=== PATIENT | male | born 1990 | race Caucasian/White ===

== ENCOUNTER 2016-08-09 21:42 | Emergency (ER) | payer OTHER ==
[~2016-08-09] VITALS: Ht 182.9 cm; Wt 141.0 kg
[2016-08-09 21:45] VITALS: Ht 182.9 cm; Wt 141.0 kg
[2016-08-09] MEDS ORDERED: SOD CHLORIDE 0.9% 1,000 ML IV STA (22:31)
[2016-08-09] MEDS ORDERED: ONDANSETRON 4 MG INJ IV STA (22:31)
[2016-08-09] MEDS ORDERED: morphine 4 MG/ML VIAL IV STA (22:31)
--- NOTE | 2016-08-09 22:40 | ERD ---
ER Documentation Chief Complaint Date/Time DATE: 08/09/16 TIME: 22:37 Chief Complaint upper abd pain x 3 days HPI 26-year-old male presents here in emergency department for complaints of upper abdominal pain and right lower quadrant pain for 3 days, started to have nausea and vomiting today. Patient does not have any blood in the vomit. Patient does not have any diarrhea or constipation. Patient does not have any blood in the stool or black stool. Patient describes the pain on affected area sharp pain, 6/ 10 scale, accompanied with vomiting. Patient denies any fever or chills. ROS All systems reviewed and are negative except as per history of present illness. Medications Home Meds Reported Medications [none] Unknown Strength No Conflict Check 08/09/16 Allergies Allergies: Coded Allergies: No Known Allergy (Unverified , 08/09/16) PMhx/Soc Medical and Surgical Hx: pt denies Medical Hx, pt denies Surgical Hx Hx Alcohol Use: Yes Hx Substance Use: No Hx Tobacco Use: No Smoking Status: Never smoker FmHx Family History: No coronary disease, No diabetes, No other Physical Exam Vitals Vital Signs Date Time Temp Pulse Resp B/P Pulse Ox O2 Delivery O2 Flow Rate FiO2 08/09/16 21:45 98.7 74 20 134/67 98 Physical Exam GENERAL: The patient is well developed and appropriate for usual state of health, in no apparent distress. CHEST: Clear to auscultation bilaterally. There are no rales, wheezes or rhonchi. HEART: Regular rate and rhythm. No murmurs, clicks, rubs or gallops. No S3 or S4. ABDOMEN: Soft, nontender and nondistended. Good bowel sounds. No rebound or guarding. No gross peritonitis. No gross organomegaly or masses. No Wick sign or McBurney point tenderness. BACK: No midline or flank tenderness. EXTREMITIES: Equal pulses bilaterally. There is no peripheral clubbing, cyanosis or edema. No focal swelling or erythema. Full range of motion. Grossly neurovascularly intact. NEURO: Alert and oriented. Cranial nerves 2-12 intact. Motor strength in all 4 extremities with 5/5 strength. Sensation grossly intact. Normal speech and gait. SKIN: There is no apparent rash or petechia. The skin is warm and dry. HEMATOLOGIC AND LYMPHATIC: There is no evidence of excessive bruising or lymphedema. No gross cervical, axillary, or inguinal lymphadenopathy. Result Diagram: 08/09/16229908/09/162299 Results 24 hrs Laboratory Tests Test 08/09/16 22:45 08/09/16 23:00 Urine Color LT. YELLOW Urine Clarity CLEAR Urine pH 6.0 Urine Specific [place] <=1.005 Urine Ketones NEGATIVE Urine Nitrite NEGATIVE Urine Bilirubin NEGATIVE Urine Urobilinogen 0.2 E.U./dL Urine Leukocyte Esterase NEGATIVE Urine Microscopic RBC 0-2/HPF Urine Microscopic WBC 0-2/HPF Urine Squamous Epithelial Cells RARE Urine Hemoglobin TRACE Urine Glucose NEGATIVE% Urine Total Protein NEGATIVE White Blood Count 10.610^3/ul Red Blood Count 4.9310^6/ul Hemoglobin 14.4g/dl Hematocrit 42.5% Mean Corpuscular Volume 86.2fl Mean Corpuscular Hemoglobin 29.2pg Mean Corpuscular Hemoglobin Concent 33.9g/dl Red Cell Distribution Width 12.3% Platelet Count 52239^3/UL Mean Platelet Volume 10.4fl Neutrophils % 72.6% Lymphocytes % 16.9% Monocytes % 8.8% Eosinophils % 1.1% Basophils % 0.3% Nucleated Red Blood Cells % 0.0/100WBC Neutrophils # 7.710^3/ul Lymphocytes # 1.810^3/ul Monocytes # 0.910^3/ul Eosinophils # 0.110^3/ul Basophils # 0.010^3/ul Nucleated Red Blood Cells # 0.010^3/ul Sodium Level 138mmol/L Potassium Level 4.2mmol/L Chloride Level 103mmol/L Carbon Dioxide Level 27mmol/L Anion Gap 12 Blood Urea Nitrogen 17mg/dl Creatinine 1.48mg/dl Glucose Level 96mg/dl Calcium Level 9.2mg/dl Total Bilirubin 0.2mg/dl Direct Bilirubin 0.00mg/dl Indirect Bilirubin 0.2mg/dl Aspartate Amino Transf (AST/SGOT) 34IU/L Alanine Aminotransferase (ALT/SGPT) 44IU/L Alkaline Phosphatase 77IU/L Total Protein 8.3g/dl Albumin 4.3g/dl Globulin 4.00g/dl Albumin/Globulin Ratio 1.07 Lipase 34U/L Current Medications Medications (Trade) Dose Ordered Sig/Andrés Route PRN Reason Start Time Stop Time Status Last Admin Dose Admin Sodium Chloride (NS) 1,000 ml @ 1,000 mls/hr Q1H STAT IV 08/09/16 22:31 08/09/16 23:30 DC 08/09/16 23:04 Morphine Sulfate (morphine) 4 mg ONCE STAT IV 08/09/16 22:31 08/09/16 22:33 DC 08/09/16 23:04 Ondansetron HCl (Zofran Inj) 4 mg ONCE STAT IV 08/09/16 22:31 08/09/16 22:33 DC 08/09/16 23:04 Patient was given medication for pain here in emergency department, after treatment, patient verbalized feeling much better. Patient's pain is improved.Patient was given Zofran here in the emergency department. After treatment, patient was able to tolerate po fluids here in the emergency department without any vomiting. There is no signs and symptoms of dehydration. Normal saline IV bolus was given here in emergency department for rehydration, patient tolerated IV fluids. PROCEDURE: US right upper quadrant CLINICAL INDICATION: Abdominal pain TECHNIQUE: Multiple real-time images were acquired of the patient's right upper abdomen utilizing a high resolution transducer. COMPARISON: None available FINDINGS: Liver: Increased echogenicity compatible with hepatic steatosis. There is no evidence of mass or ductal dilatation. Contour is normal. Normal size. Normal directional blood flow is seen within the patent main portal vein. The maximum dimension estimated at 13.2 cm . Gallbladder: Normal. No sonographic Wick's sign is reported. Common bile duct: Normal; 4 mm. There is no evidence for choledocholithiasis. Right Kidney: Normal; maximum length measured at approximately 13.2 cm. Pancreas: Obscured by bowel gas. RPTAT:HJJR IMPRESSION: 1. Hepatic steatosis. 2. Bowel gas obscures evaluation of the pancreas. 3. Otherwise unremarkable right upper quadrant ultrasound. Physician Cinthya Date Time Electronically viewed and signed by Physician Cinthya on 08/09/2016 23:23 JR/ CC: PRECIOUS HANLEY NP PROCEDURE: CT Abdomen and pelvis without contrast. CLINICAL INDICATION: Abdominal pain. TECHNIQUE: CT scan of the abdomen and pelvis was performed on a multi- detector high-resolution CT scanner. Contiguous axial images were obtained from the lung bases to the ischial tuberosities without intravenous contrast. Coronal and sagittal reformatted images were also obtained. Images were reviewed on the PACS workstation. One or more of the following dose reduction techniques were used: - Automated exposure control. - Adjustment of the mA and/or kV according to patient size. - Use of iterative reconstruction technique. Exam CTD/vol = 23.76 mGy. Total exam DLP = 1518.99 mGy-cm. COMPARISON: None. FINDINGS: Evaluation of the lung bases demonstrates no pleural or parenchymal disease. Abdomen: The liver is normal in size. There is no focal mass or dilatation of the biliary tree. The gallbladder is not distended. The spleen, pancreas and bilateral adrenal glands are within normal limits. Bilateral kidneys are normal in size with no contour deforming mass identified. There is no radiopaque renal or ureteral calculus identified. There is no hydronephrosis or hydroureter. There is bilateral mild perinephric stranding. There is no retroperitoneal adenopathy. The abdominal aorta is of normal caliber. There is no abnormal bowel wall thickening or distension. There is no bowel obstruction or free air. A normal appendix is identified. There is no diverticulosis or diverticulitis. There is no ascites. Pelvis: The bladder is unremarkable. The prostate and seminal vesicles are within normal limits. There is no significant pelvic adenopathy or free fluid. Evaluation of the osseous structures demonstrates no suspicious lytic or blastic lesion. There are defects of bilateral pars interarticularis of L5. IMPRESSION: Bilateral mild perinephric stranding of uncertain clinical significance. Clinical correlation is needed to exclude pyelonephritis. Bilateral pars defects of L5. Otherwise no acute abnormality identified within the abdomen and pelvis. .Tahir Hogan MD, MD Date Time Electronically viewed and signed by .Tahir Hogan MD, MD on 08/10/2016 01:05 .T/ CC: PRECIOUS HANLEY TAILER OUT Procedures/MDM Medical Decision Making: Patient's upper abdominal pain nonspecific at this time , most likely from gastritis. No gallbladder stones noted. Patient's right lower quadrant abdominal pain nonspecific at this time. There is perinephric stranding noted, but no symptoms of any acute pyelonephritis. No symptoms of any stones. There is low suspicion for abdominal emergencies at this time. Patients abdominal exam is normal at this time. Patients radiology exam does not show any abdominal emergencies at this time. There is low suspicion for appendicitis, cholecystitis, abdominal aortic aneurysms or peritonitis at this time. There is low suspicion for sepsis. Patient appears well and is hemodynamically stable. Disposition: Home. Condition: Stable Prescription [place], Zofran, omeprazole, Mylanta Instructions: Patient is advised to take medications as prescribed. Patient is advised to rest, increase fluid intake and do brat diet for next 1-2 days and progress as tolerated. Patient is advised that if symptoms are worse, severe abdominal pain, uncontrolled vomiting, high fever, severe flank pain, worst signs and symptoms, to return to the emergency department immediately. Otherwise, patient can follow up with primary care doctor in 5-7 days. Departure Diagnosis: Primary Impression: Abdominal pain Abdominal location: generalized Qualified Code: R10.84 - Generalized abdominal pain Condition: Stable Patient Instructions: Abdominal Pain Additional Instructions: Patient is advised to take medications as prescribed. Patient is advised to rest , increase fluid intake and do brat diet for next 1-2 days and progress as tolerated. Patient is advised that if symptoms are worse, severe abdominal pain , uncontrolled vomiting, high fever, severe flank pain, worst signs and symptoms , to return to the emergency department immediately. Otherwise, patient can follow up with primary care doctor in 5-7 days. PRECIOUS HANLEY NP August 09, 2016 22:40
[2016-08-09 23:13] LABS: ADD UMIC YES; URINE BILIRUBIN (Dip) NEGATIVE (NEGATIVE); URINE BLOOD (Dip) TRACE (NEGATIVE); URINE COLOR LT. YELLOW (YELLOW); URINE GLUCOSE (Dip) NEGATIVE (NEGATIVE); URINE KETONES (Dip) NEGATIVE (NEGATIVE); URINE LEUKOCYTE ESTERASE (Dip) NEGATIVE (NEGATIVE); URINE NITRITE (Dip) NEGATIVE (NEGATIVE); URINE TOTAL PROTEIN (Dip) NEGATIVE (NEGATIVE); URINE UROBILINOGEN (Dip) 0.2 E.U./dL (0.1-1.0)
[2016-08-09 23:21] LABS: ADD SCAN DIFF NO
[2016-08-09 23:23] LABS: BASOPHILS % 0.3 % (0.0-2.0); EOSINOPHILS # 0.1 10^3/ul (0.0-0.5); EOSINOPHILS % 1.1 % (0.0-7.0); HEMATOCRIT 42.5 % (42.0-52.0); HEMOGLOBIN 14.4 g/dl (14.0-18.0); LYMPHOCYTES # 1.8 10^3/ul (0.8-2.9); LYMPHOCYTES % 16.9 % (15.0-51.0); MEAN CORPUSCULAR HEMOGLOBIN 29.2 pg (29.0-33.0); MEAN CORPUSCULAR HGB CONC 33.9 g/dl (32.0-37.0); MEAN CORPUSCULAR VOLUME 86.2 fl (82.0-101.0); MEAN PLATELET VOLUME 10.4 fl (7.4-10.4); MONOCYTE # 0.9 10^3/ul (0.3-0.9); MONOCYTES % 8.8 % (0.0-11.0); NEUTROPHIL # 7.7 10^3/ul (1.6-7.5); NEUTROPHILS % 72.6 % (39.0-77.0); PLATELET COUNT 283 10^3/UL (140-415); RED BLOOD COUNT 4.93 10^6/ul (4.70-6.10); RED CELL DISTRIBUTION WIDTH 12.3 % (11.5-14.5); WHITE BLOOD COUNT 10.6 10^3/ul (4.8-10.8)
--- NOTE | 2016-08-09 23:23 | RADRPT ---
PROCEDURE: US right upper quadrant CLINICAL INDICATION: Abdominal pain TECHNIQUE: Multiple real-time images were acquired of the patient's right upper abdomen utilizing a high resolution transducer. COMPARISON: None available FINDINGS: Liver: Increased echogenicity compatible with hepatic steatosis. There is no evidence of mass or d uctal dilatation. Contour is normal. Normal size. Normal directional blood flow is seen within the patent main portal vein. The maximum dimension estimated at 13.2 cm . Gallbladder: Normal. No sonographic Wick's sign is reported. Common bile duct: Normal; 4 mm. There is no evidence for choledocholithiasis. Right Kidney: Normal; maximum length measured at approximately 13.2 cm. Pancreas: Obscured by bowel gas. RPTAT:HJJR IMPRESSION: 1. Hepatic steatosis. 2. Bowel gas obscures evaluation of the pancreas. 3. Otherwise unremarkable right upper quadrant ultrasound. Physician Cinthya Date Time Electronically viewed and signed by Physician Cinthya on 08/09/2016 23:23 /
[2016-08-09 23:37] LABS: SQUAMOUS EPITHELIAL CELL,UR RARE; URINE RBCS 0-2 /HPF (0)
[2016-08-09 23:40] LABS: ALBUMIN 4.3 g/dl (3.3-4.9); ALBUMIN/GLOBULIN RATIO 1.07; BILIRUBIN,INDIRECT 0.2 mg/dl (0-1.1); BILIRUBIN,TOTAL 0.2 mg/dl (0.2-1.3); CALCIUM 9.2 mg/dl (8.4-10.2); CREATININE 1.48 mg/dl (0.61-1.24); POTASSIUM 4.2 mmol/L (3.5-5.1); TOTAL PROTEIN 8.3 g/dl (6.1-8.1)
--- NOTE | 2016-08-10 01:05 | RADRPT ---
PROCEDURE: CT Abdomen and pelvis without contrast. CLINICAL INDICATION: Abdominal pain. TECHNIQUE: CT scan of the abdomen and pelvis was performed on a multi-detector high-resolution CT scanner. Contiguous axial images were obtained from the lung bases to the ischial tuberosities wit hout intravenous contrast. Coronal and sagittal reformatted images were also obtained. Images were reviewed on the PACS workstation. One or more of the following dose reduction techniques were used: - Automated exposure control. - Adjustment of the mA and/or kV according to patient size. - Use of iterative reconstruction technique. Exam CTD/vol = 23.76 mGy. Total exam DLP = 1518.99 mGy-cm. COMPARISON: None. FINDINGS: Evaluation of the lung bases demonstrates no pleural or parenchymal disease. Abdomen: The liver is normal in size. There is no focal mass or dilatation of the biliary tree. T he gallbladder is not distended. The spleen, pancreas and bilateral adrenal glands are within carmen l limits. Bilateral kidneys are normal in size with no contour deforming mass identified. There is no radiopaque renal or ureteral calculus identified. There is no hydronephrosis or hydroureter. T here is bilateral mild perinephric stranding. There is no retroperitoneal adenopathy. The abdomina l aorta is of normal caliber. There is no abnormal bowel wall thickening or distension. There is no bowel obstruction or free air . A normal appendix is identified. There is no diverticulosis or diverticulitis. There is no asci heike. Pelvis: The bladder is unremarkable. The prostate and seminal vesicles are within normal limits. There is no significant pelvic adenopathy or free fluid. Evaluation of the osseous structures demonstrates no suspicious lytic or blastic lesion. There are d efects of bilateral pars interarticularis of L5. IMPRESSION: Bilateral mild perinephric stranding of uncertain clinical significance. Clinical correlation is ne eded to exclude pyelonephritis. Bilateral pars defects of L5. Otherwise no acute abnormality identified within the abdomen and pelvis. .Tahir Hogan MD, MD Date Time Electronically viewed and signed by .Tahir Hogan MD, MD on 08/10/2016 01:05 .T/
[2016-08-10] MEDS ORDERED: ONDA4TAB14 PO (01:10)
[2016-08-10] MEDS ORDERED: MAG-19 PO (01:10)
[2016-08-10] MEDS ORDERED: OMEP20CA16 PO (01:10)
[2016-08-10] MEDS ORDERED: HYDR-906 PO (01:10)
[2016-08-10 01:27] VITALS: BP 133/75; PULSE 57; RESP 16; TEMP 97.7
== END 2016-08-10 01:29 | disposition home or self-care (01) ==
LOC: FTE 21:42
DX: R10.84 Generalized abdominal pain (principal); R11.2 Nausea with vomiting, unspecified
CPT/HCPCS: 36415; 74176; 76705; 80053; 81001; 83690; 85025; 96361; 96374; 96375; 99285; J2270; J2405; J7030

== ENCOUNTER 2018-05-27 07:02 | Inpatient (IN) | payer OTHER ==
[2018-05-24 13:09] VITALS: BMI 93.0
--- NOTE | 2018-05-24 14:20 | RADRPT ---
Vent Rate: 48 bpm RR Interval: 0 msec SC Interval: 180 msec QRS Duration: 92 msec QT Interval: 414 msec QTC Interval: 369 msec P-R-T [place]: 43 - 42 - 41 degrees Marked sinus bradycardia Abnormal ECG Electronically Signed By: Noah Morley
[2018-05-27] VITALS (31 sets, daily range): BP systolic 123–159; BP diastolic 59–114; PULSE 52–100; RESP 11–25; Ht 177.8 cm; Wt 138.1 kg
[~2018-05-27] VITALS: Ht 177.8 cm; Wt 138.1 kg
[~2018-05-27 07:02] MED LIST: ZOF8 PO
[2018-05-27] MEDS ORDERED: OMEP40CA6 PO (07:22)
--- NOTE | 2018-05-27 08:42 | PREAC ---
Date/Time of Note Date/Time of Note DATE: 05/27/18 TIME: 08:42 Anesthesia Eval and Record Evaluation Time Pre-Procedure Interview DATE: 05/27/18 TIME: 08:42 Age 27 Sex male NPO: 8 hrs Preoperative diagnosis gastric CA Planned procedure Partial Gastrectomy Past Medical History Past Medical History: Includes GI: GERD, Morbid obesity Surgery & Anesthesia Issues No known issue Meds Anticoagulation: No Beta Rey within 24 hr: No Reason Beta Rey not given: Pt. not on B-Rey Reported Medications Omeprazole* (Omeprazole*) 40 Mg Capsule.dr, 40 MG PO BID, #30 CAP 05/27/18 Discontinued Scripts Ondansetron Hcl* (Zofran*) 8 Mg Tab, 8 MG PO Q6H PRN for NAUSEA AND OR VOMITING, #20 TAB Prov:CHRISTINE ROBERTS MD 04/28/18 Meds reviewed: Yes Allergies Coded Allergies: No Known Allergy (Unverified , 04/28/18) Allergies Reviewed: Yes Labs/Studies Labs Reviewed: Reviewed by anesthesiologist Result Diagram: 05/24/18 1334 05/24/18 1334 test: N/A Pre-procedure Exam Last vitals Vital Signs Date Temp Pulse Resp B/P (MAP) Pulse Ox O2 O2 Flow FiO2 Time Delivery Rate 05/27/18 97.4 52 16 127/59 98 Room Air 08:13 (81) Airway: Adequate mouth opening, Adequate thyromental dist Mallampati: Mallampati II Teeth: Normal Lung: Normal Heart: Normal ASA Physical Status ASA physical status: 3 Emergency: None Planned Anesthetic General/MAC: ETT Neuraxial: Epidural Nerve block: TAP (bilateral) Pre-operative Attestations Prior to commencing anesthesia and surgery, the patient was re-evaluated, there was verification of: *The patient's identity *The results of appropriate recent lab work and preoperative vital signs *The above evaluation not changing prior to induction *Anesthetic plan, risk benefits, alternative and complications discussed with patient/family; questions answered; patient/family understands, accepts and wishes to proceed. JOS CONRAD May 27, 2018 08:42
[2018-05-27] MEDS ORDERED: ONDANSETRON 4 MG INJ IV PRN (09:00)
[2018-05-27] MEDS ORDERED: DIPHENHYDRAMINE 50 MG INJ IV PRN (09:00)
[2018-05-27] MEDS ORDERED: FENTAnyl 50 MCG/ML VIAL IV PRN ×2 (09:00)
[2018-05-27] MEDS ORDERED: ALBUTEROL 0.083% (NEB) 2.5 MG/3 ML AMP HHN PRN (09:00)
[2018-05-27] MEDS ORDERED: METOCLOPRAMIDE 10 MG INJ IV PRN (09:00)
[2018-05-27] MEDS ORDERED: MEPERIDINE 25 MG INJ IV PRN (09:00)
[2018-05-27] MEDS ORDERED: HYDROmorphONE 1 MG/5 ML IV SYRINGE IV PRN ×2 (09:00)
[2018-05-27] MEDS ORDERED: FENTAnyl 50 MCG/ML VIAL ONE ×4 (09:20→13:17)
[2018-05-27] MEDS ORDERED: CEFAZOLIN 1 GM INJ ONE (09:38)
[2018-05-27] MEDS ORDERED: LIDOCAINE 100 MG SYRINGE ONE (09:38)
[2018-05-27] MEDS ORDERED: ROCURONIUM 50 MG INJ ONE (09:38)
[2018-05-27] MEDS ORDERED: PROPOFOL 40 ML ONE (09:38)
[2018-05-27] MEDS ORDERED: SUCCINYLCHOLINE CHLORIDE 100 MG/5 ML SYG IV ONE (09:38)
[2018-05-27] MEDS ORDERED: SUGAMMADEX SODIUM 200 MG/2 ML VIAL IV ONE (12:39)
[2018-05-27] MEDS: HYDROmorphONE 1 MG/5 ML IV SYRINGE IV PRN ×5 (13:30→13:58)
[2018-05-27] MEDS: FENTAnyl 50 MCG/ML VIAL IV PRN ×5 (13:31→13:59)
[2018-05-27] MEDS: HYDROmorphONE 0.2 MG/ML PCA IV SCH ×2 (14:07→18:31)
[2018-05-27] MEDS ORDERED: DIPHENHYDRAMINE 50 MG INJ ONE (14:16)
--- NOTE | 2018-05-27 14:43 | SIPON ---
Date/Time of Note Date/Time of Note DATE: 05/27/18 TIME: 14:41 Operative Report Preoperative Diagnosis Gastric adenocarcinoma Postoperative Diagnosis Same Operation/Procedure Performed Subtotal gastrectomy with Kiesha-en-Y gastrojejunostomy Surgeon see signature line education administrative assistant Dr Herzog Anesthesia: general Estimated blood loss: 150 - 200 ml's Transfusion Required none Specimen Subtotal gastrectomy specimen Grafts/Implants none Complications none JAVIER ALMONTE MD May 27, 2018 14:43
--- NOTE | 2018-05-27 15:25 | OPR ---
DATE OF OPERATION: 05/27/2018 PREOPERATIVE DIAGNOSIS: Adenocarcinoma of the stomach. POSTOPERATIVE DIAGNOSIS: Adenocarcinoma of the stomach. OPERATION PERFORMED: Exploratory laparotomy and subtotal gastrectomy. ANESTHESIA: General. ANESTHESIOLOGIST: Jose Jason MD SURGEON: Giles Julian MD TERMITE RENEWAL INSPECTOR: Abdiaziz York MD INDICATIONS FOR PROCEDURE: The patient is an unfortunate 27-year-old male who was experiencing sympt oms of gastroesophageal reflux. For this reason, he underwent upper endoscopy and was found to have an ulcerated lesion posterior wall of the body of the stomach approximately 8 cm from the gastroesoph ageal junction. Biopsy confirmed an adenocarcinoma. The patient was counseled as to the need for ga strectomy and possible subtotal gastrectomy. He consented and was scheduled for surgery. DESCRIPTION OF PROCEDURE: The patient was brought to the operating theater, placed under general ane sthesia. A Brennan catheter was placed. The abdomen was then shaved, prepped and draped in the usual sterile fashion. A midline incision was made from a point just to the left of the xiphoid down to th e umbilicus and around the umbilicus to a point 5 cm below the umbilicus. Subcutaneous tissue was di ssected with cautery down to the anterior rectus sheath. The linea alba was incised. The abdomen wa s entered without difficulty. The Bookwalter retractor was then placed. Excellent exposure was obta ined. There was no evidence of intra-abdominal metastases, specifically of the liver. The omentum a nd the mesentery of the bowel were free of disease. There was a palpable mass in the stomach in the expected location. Preparations for gastrectomy were made. The avascular space between the greater omentum and the transverse mesentery was then opened and sequentially opened with the LigaSure device . This allowed for mobilization of the greater curvature of the stomach all the way to the spleen an d then additional mobilization until the area of the proximal duodenum was mobilized. At this point, the lesser sac was entered and the lesser omentum was then also mobilized using the LigaSure device. A suitable point of transection on the proximal duodenum then took place and was carried out with a ZACK stapler. This allowed better visualization of the posterior aspect of the stomach. The distanc e between the tumor and the GE junction was only approximately 6 cm. Therefore, a subtotal gastrecto my was performed with only a remnant of the fundus of the stomach remaining. This was accomplished w ith a ZACK stapler using 2 separate firings. The specimen was then removed and intraoperative analysi s was performed by attending pathologist, Dr. Chan Chang. He stated the margins were grossly cl ear. The wound was then irrigated. Preparations for reanastomosis were made. The duodenal stump wa s then oversewn with multiple 3-0 silk sutures in interrupted fashion. At this point, the ligament o f Treitz was identified and a suitable point for transection to create the Kiesha limb was identified. Approximately 40 cm distal to the ligament of Treitz, the bowel was prepared of its mesentery and th en transected with a ZACK stapler. The distal portion was then brought superior and a jejunojejunosto my was created in the standard fashion using a ZACK stapler and the staple line was then inspected. R esidual bleeding was controlled by oversewing the staple line with 3-0 silk pop off sutures. Final c ompletion of the anastomosis was then accomplished with a TA stapler in the standard fashion and the small opening in the mesentery was then reapproximated with multiple 3-[address] Iesha esparza e the decision to perform the gastrojejunostomy in antecolic fashion. The Kiesha limb was brought in c lose approximation with the residual portion of the gastric fundus and held in place with multiple 3- 0 silk pop-off sutures. A gastrotomy and enterotomy were made and anastomosis was created with a ZACK stapler. Staple line was inspected. Minimal bleeding was controlled with cautery. At this point, the NG tube was advanced through the anastomosis approximately 1 cm into the portion of jejunum. The anastomosis was then completed with a TA stapler in a standard fashion. A #[address] ingram was then brought through the right lower abdominal wall. It was laid adjacent to the duodenal st ump and secured to some fibrous tissue in this area with a 2-0 chromic suture to prevent drain migrat ion. The drain was secured in place with 2-0 nylon suture. Final irrigation and inspection took amie ce. There is no evidence of bleeding. Lap, sponge and instrument counts were correct. The abdomen was then closed with #1 looped PDS sutures in running fashion and the subcutaneous tissue was then ir rigated and the skin was reapproximated with skin alexia. The patient tolerated the procedure well. The total blood loss was approximately 200 mL. There were no complications and the patient was tra nsported in stable condition to the recovery room. Dictated By: GILES JULIAN MD TL/MARTINEZ Conf#: [id number] DID#: [id number] CC: GILES JULIAN MD; ABDIAZIZ YORK MD;*EndCC*
[2018-05-27] MEDS: D5W-0.45 NACL + KCL 20 MEQ 1,000 ML IV SCH ×2 (16:00→21:00)
--- NOTE | 2018-05-27 16:17 | HP ---
Date/Time of Note Date/Time of Note DATE: 05/27/18 TIME: 16:09 Assessment/Plan VTE Prophylaxis SCD applied (from Nsg): Yes Pharmacological prophylaxis: NA/contraindicated Pharm contraindication: surgical contra Lines/Catheters IV Catheter Type (from Nrsg): Peripheral IV Urinary Cath still in place: Yes (Inserted in OR) Reason Cath still needed: urinary retention Assessment/Plan Assessment/Plan -Adenocarcinoma of the stomach, status post exploratory laparotomy and subtotal gastrectomy by Dr. Julian on 05/27/2018. Continue BEE KEEPER Dilaudid as needed for pain and Zofran as needed for nausea. Continue IV fluids and postoperative antibiotics. NG tube to low intermittent suction. -Morbid obesity with BMI of 43.7. Further recommendations based on clinical course. Plan of care discussed with Dr. Carvajal. Result Diagram: 05/24/18 1334 05/24/18 1334 HPI/ROS Admit Date/Time Admit Date/Time May 27, 2018 at 07:02 Hx of Present Illness The patient is an unfortunate 27-year-old male who was evaluated for abdominal pain. Patient was history of H. pylori, completed their medication management. Patient underwent upper endoscopy recurrent abdominal pain and was found to have also rated lesion over posterior wall of the body of the stomach. Biopsy confirmed adenocarcinoma. Patient was evaluated by Dr. Julian in general surgery consultation with recommendation for possible subtotal gastrectomy. Patient was brought to the hospital today and underwent exploratory laparotomy and subtotal gastrectomy. Patient is experiencing significant pain and was started on BEE KEEPER Dilaudid, patient is admitted for further evaluation and management. ROS 12 point review of systems negative except for that mentioned in HPI PMH/Family/Social Past Medical History Medications Current Medications Hydromorphone HCl (Dilaudid BEE KEEPER) 0.2 MG/HR CONTINUOUS R... Q4PCA IV Last administered on 05/27/18at 14:07; Admin Dose 6 MG; Start 05/27/18 at 13:30 Pantoprazole (Protonix Iv) 40 mg DAILY@06 IV ; Start 05/28/18 at 06:00 Potassium Chloride/Dextrose/ Sod Cl 1,000 ml @ 150 mls/hr Q6H40M IV Last administered on 05/27/18at 16:00; Admin Dose 150 MLS/HR; Start 05/27/18 at 14:43 Coded Allergies: No Known Allergy (Unverified , 04/28/18) Past Surgical History Past Surgical Hx: no surgical history Family History Significant Family History: other (Denies any family history of cancer) Social History Alcohol Use: none Smoking Status: Never smoker Drug Use: none Exam/Review of Systems Vital Signs Vitals Vital Signs Date Temp Pulse Resp B/P (MAP) Pulse Ox O2 O2 Flow FiO2 Time Delivery Rate 05/27/18 98.3 56 16 142/77 100 Nasal 2.0 15:22 (98) Cannula Exam Constitutional: alert, oriented Head: normocephalic ENMT: other (NG tube) Neck: supple Respiratory: clear to auscultation Cardiovascular: nl pulses Gastrointestinal: soft, other (Status post surgery) Genitourinary - Male: other (Brennan) Musculoskeletal: nl extremities to inspection Extremities: normal pulses Neurological: nl mental status Skin: nl VEE Lamar May 27, 2018 16:17
[2018-05-27] MEDS: KETOROLAC 30 MG INJ IV SCH ×2 (16:49→22:55)
[2018-05-28] MEDS: D5W-0.45 NACL + KCL 20 MEQ 1,000 ML IV SCH ×4 (02:25→20:47)
[2018-05-28 03:38] VITALS: BP 122/67; PULSE 64; RESP 16
[2018-05-28] MEDS: KETOROLAC 30 MG INJ IV SCH ×4 (05:05→21:00)
[2018-05-28] MEDS: PANTOPRAZOLE 40 MG INJ IV SCH (05:06)
[2018-05-28] MEDS: HYDROmorphONE 0.2 MG/ML PCA IV SCH ×3 (08:08→20:48)
[2018-05-28 08:22] VITALS: BP 140/63; PULSE 68; RESP 18
--- NOTE | 2018-05-28 09:51 | PAC ---
Date/Time of Note Date/Time of Note DATE: 05/28/18 TIME: 09:51 Post-Anesthesia Notes Post-Anesthesia Note Last documented vital signs Vital Signs Date Temp Pulse Resp B/P (MAP) Pulse Ox O2 O2 Flow FiO2 Time Delivery Rate 05/28/18 98.0 68 18 140/63 93 Nasal 08:22 (88) Cannula 05/28/18 2.0 03:38 Activity: WNL Respiratory function: WNL Cardiovascular function: WNL Mental status: Baseline Pain reasonably controlled: Yes Hydration appropriate: Yes Nausea/Vomiting absent: Yes JOS CONRAD May 28, 2018 09:51
--- NOTE | 2018-05-28 12:28 | PN ---
DATE: 05/28/2018 Postop day #1 status post subtotal gastrectomy for cancer of the stomach. SUBJECTIVE: No specific complaints except chest pain. The patient is receiving Toradol 30 mg IV q.6 hours round the clock and also has UNIT MANAGER morphine. OBJECTIVE: GENERAL: Awake, alert and oriented. VITAL SIGNS: Temperature maximum 98.7, heart rate 68, respiration 18, blood pressure 140/63, saturat ion 93% on 2 liters nasal cannula. HEART: Regular. LUNGS: Clear. ABDOMEN: Soft. Dressing is intact. EXTREMITIES: Legs have no calf tenderness. SCDs are in place and working. INPUT AND OUTPUT: The Davis-Schafer drain has drained 125 mL in past 24 hours. NG tube has minimal drainage, maybe 5 to 10 mL. Urine output from the time of operation to 7:00 today morning has been 1 150 mL. LABORATORY DATA: WBC 7300 with 65% segmented, hemoglobin 12.9, hematocrit 38.7. Chemistry: Sodium, potassium, BUN, creatinine are within normal. ASSESSMENT AND PLAN: The patient is stable. Continue current care. Keep the NG tube. Actually, I readjusted the taking of the NG tube. It was emphasized to the nurse RN to document in the computer that nobody should remove the NG tube and if by any chance accidentally the NG tube falls off, nobody should try to put it back. Incentive spirometry exercises are very good. The patient's tidal volum e is about 2500 mL. Dictated By: VIKKI YORK MD PS/NTS Conf#: [id number] DID#: [id number] CC: JAVIER ALMONTE MD; TORRIE MORENO MD;*EndCC*
--- NOTE | 2018-05-28 13:25 | PN ---
Date/Time of Note Date/Time of Note DATE: 05/28/18 TIME: 13:15 Assessment/Plan VTE Prophylaxis Risk score (from Ns)>0 risk: 10 SCD applied (from Ns): Yes Pharmacological prophylaxis: NA/contraindicated Pharm contraindication: surgical contra Lines/Catheters IV Catheter Type (from Nrsg): Peripheral IV Urinary Cath still in place: Yes Reason Cath still needed: urinary retention Assessment/Plan Hospital Course Pain is adequately controlled on STOCKROOM ASSOCIATE Dilaudid, patient is encouraged to use incentive spirometer. Assessment/Plan -Adenocarcinoma of the stomach, status post exploratory laparotomy and subtotal gastrectomy by Dr. Julian on 05/27/2018. Continue STOCKROOM ASSOCIATE Dilaudid as needed for pain and Zofran as needed for nausea. Continue IV fluids and postoperative antibiotics. NG tube to low intermittent suction. -Morbid obesity with BMI of 43.7. Further recommendations based on clinical course. Plan of care discussed with Dr. Carvajal. Result Diagram: 05/28/18 0821 05/28/18 0821 Results 24hrs Laboratory Tests Test 05/28/18 08:21 White Blood Count 7.3 # Red Blood Count 4.48 L Hemoglobin 12.9 L Hematocrit 38.7 L Mean Corpuscular Volume 86.4 Mean Corpuscular Hemoglobin 28.8 L Mean Corpuscular Hemoglobin Concent 33.3 Red Cell Distribution Width 12.4 Platelet Count 233 Mean Platelet Volume 11.3 H Immature Granulocytes % 0.300 Neutrophils % 65.1 Lymphocytes % 23.0 Monocytes % 9.7 Eosinophils % 1.8 Basophils % 0.1 Nucleated Red Blood Cells % 0.0 Immature Granulocytes # 0.020 Neutrophils # 4.7 Lymphocytes # 1.7 Monocytes # 0.7 Eosinophils # 0.1 Basophils # 0.0 Nucleated Red Blood Cells # 0.0 Prothrombin Time 14.1 Prothrombin Time Ratio 1.1 INR International Normalized Ratio 1.08 Activated Partial Thromboplast Time 31.5 Sodium Level 137 Potassium Level 3.9 Chloride Level 102 Carbon Dioxide Level 27 Anion Gap 8 Blood Urea Nitrogen 7 Creatinine 0.70 Est Glomerular Filtrat Rate mL/min > 60 Glucose Level 111 Calcium Level 8.7 Exam/Review of Systems Exam Vitals Vital Signs Date Temp Pulse Resp B/P (MAP) Pulse Ox O2 O2 Flow FiO2 Time Delivery Rate 05/28/18 98.0 68 18 140/63 93 Nasal 08:22 (88) Cannula 3/12/19 2.0 03:38 Intake and Output 05/27/18 05/27/18 05/28/18 1515:00 23:00 07:00 IntakeIntake Total 2000 ml 300 ml 1350 ml OutputOutput Total 250 ml 1125 ml 1000 ml BalanceBalance 1750 ml -825 ml 350 ml Constitutional: alert, oriented Respiratory: clear to auscultation Cardiovascular: nl pulses Gastrointestinal: soft, other (Status post surgery, midline abdominal incision, CAPRICE) Extremities: normal pulses Neurological: nl mental status Results Results 24hrs Laboratory Tests Test 05/28/18 08:21 White Blood Count 7.3 # Red Blood Count 4.48 L Hemoglobin 12.9 L Hematocrit 38.7 L Mean Corpuscular Volume 86.4 Mean Corpuscular Hemoglobin 28.8 L Mean Corpuscular Hemoglobin Concent 33.3 Red Cell Distribution Width 12.4 Platelet Count 233 Mean Platelet Volume 11.3 H Immature Granulocytes % 0.300 Neutrophils % 65.1 Lymphocytes % 23.0 Monocytes % 9.7 Eosinophils % 1.8 Basophils % 0.1 Nucleated Red Blood Cells % 0.0 Immature Granulocytes # 0.020 Neutrophils # 4.7 Lymphocytes # 1.7 Monocytes # 0.7 Eosinophils # 0.1 Basophils # 0.0 Nucleated Red Blood Cells # 0.0 Prothrombin Time 14.1 Prothrombin Time Ratio 1.1 INR International Normalized Ratio 1.08 Activated Partial Thromboplast Time 31.5 Sodium Level 137 Potassium Level 3.9 Chloride Level 102 Carbon Dioxide Level 27 Anion Gap 8 Blood Urea Nitrogen 7 Creatinine 0.70 Est Glomerular Filtrat Rate mL/min > 60 Glucose Level 111 Calcium Level 8.7 Medications Medication Current Medications Hydromorphone HCl (Dilaudid STOCKROOM ASSOCIATE) 0.2 MG/HR CONTINUOUS R... Q4PCA IV Last administered on 05/28/18at 08:08; Admin Dose 6 MG; Start 05/27/18 at 13:30 Pantoprazole (Protonix Iv) 40 mg DAILY@06 IV Last administered on 05/28/18at 05:06; Admin Dose 40 MG; Start 05/28/18 at 06:00 Potassium Chloride/Dextrose/ Sod Cl 1,000 ml @ 150 mls/hr Q6H40M IV Last administered on 05/28/18at 11:36; Admin Dose 150 MLS/HR; Start 05/27/18 at 14:43 Ketorolac Tromethamine (Toradol) 30 mg Q6H IV Last administered on 05/28/18at 09:14; Admin Dose 30 MG; Start 05/27/18 at 16:15; Stop 05/30/18 at 16:14 Ondansetron HCl (Zofran Inj) 4 mg Q4H PRN IV NAUSEA AND/OR VOMITING; Start 05/27/18 at 16:30 VEE COOK May 28, 2018 13:25
[2018-05-28] MEDS: ONDANSETRON 4 MG INJ IV PRN (13:29)
[2018-05-28 15:23] VITALS: BP 138/70; PULSE 67; RESP 18
[2018-05-28 20:42] VITALS: BP 130/60; PULSE 67; RESP 18
[2018-05-29 02:34] VITALS: BP 130/72; PULSE 78; RESP 19
[2018-05-29] MEDS: D5W-0.45 NACL + KCL 20 MEQ 1,000 ML IV SCH ×4 (03:23→23:03)
[2018-05-29] MEDS: KETOROLAC 30 MG INJ IV SCH ×4 (03:25→22:07)
[2018-05-29] MEDS: HYDROmorphONE 0.2 MG/ML PCA IV SCH ×4 (05:34→20:43)
[2018-05-29] MEDS: PANTOPRAZOLE 40 MG INJ IV SCH (05:54)
[2018-05-29 07:36] VITALS: BP 116/56; PULSE 64; RESP 18
[2018-05-29] MEDS: ONDANSETRON 4 MG INJ IV PRN (12:43)
--- NOTE | 2018-05-29 14:05 | PN ---
Date/Time of Note Date/Time of Note DATE: 05/29/18 TIME: 14:00 Assessment/Plan VTE Prophylaxis Risk score (from Ns)>0 risk: 1 SCD applied (from Ns): Yes Pharmacological prophylaxis: NA/contraindicated Pharm contraindication: surgical contra Lines/Catheters IV Catheter Type (from Nrsg): Peripheral IV Urinary Cath still in place: Yes Reason Cath still needed: urinary retention Assessment/Plan Hospital Course Patient has small amount bloody secretions from NG tube, 10 cc per shift, patient continues on LONE LEAD LINEMAN Dilaudid with adequate pain control, continued on IV fluids, afebrile. Assessment/Plan -Adenocarcinoma of the stomach, status post exploratory laparotomy and subtotal gastrectomy by Dr. Julian on 05/27/2018. Continue LONE LEAD LINEMAN Dilaudid as needed for pain and Zofran as needed for nausea. Continue IV fluids and postoperative antibiotics. NG tube to low intermittent suction. -Morbid obesity with BMI of 43.7. Further recommendations based on clinical course. Plan of care discussed with Dr. Carvajal. Result Diagram: 05/29/18 1023 05/29/18 1023 Results 24hrs Laboratory Tests Test 05/29/18 10:23 White Blood Count 7.0 Red Blood Count 4.45 L Hemoglobin 12.9 L Hematocrit 38.7 L Mean Corpuscular Volume 87.0 Mean Corpuscular Hemoglobin 29.0 Mean Corpuscular Hemoglobin Concent 33.3 Red Cell Distribution Width 12.0 Platelet Count 227 Mean Platelet Volume 10.8 H Immature Granulocytes % 0.400 Neutrophils % 71.2 Lymphocytes % 16.8 Monocytes % 8.7 Eosinophils % 2.8 Basophils % 0.1 Nucleated Red Blood Cells % 0.0 Immature Granulocytes # 0.030 Neutrophils # 5.0 Lymphocytes # 1.2 Monocytes # 0.6 Eosinophils # 0.2 Basophils # 0.0 Nucleated Red Blood Cells # 0.0 Prothrombin Time 13.1 Prothrombin Time Ratio 1.0 INR International Normalized Ratio 0.98 Activated Partial Thromboplast Time 31.8 Sodium Level 139 Potassium Level 3.8 Chloride Level 102 Carbon Dioxide Level 29 Anion Gap 8 Blood Urea Nitrogen 5 L Creatinine 0.74 Est Glomerular Filtrat Rate mL/min > 60 Glucose Level 104 Calcium Level 9.0 Exam/Review of Systems Exam Vitals Vital Signs Date Temp Pulse Resp B/P (MAP) Pulse Ox O2 O2 Flow FiO2 Time Delivery Rate 05/29/18 98.7 64 18 116/56 98 07:36 (76) 05/28/18 Nasal 2.0 20:30 Cannula Intake and Output 05/28/18 05/28/18 05/29/18 1414:59 22:59 06:59 IntakeIntake Total 2000 ml 1000 ml 1375 ml OutputOutput Total 1600 ml 1410 ml 2055 ml BalanceBalance 400 ml -410 ml -680 ml Exam Constitutional: alert, oriented Respiratory: clear to auscultation Cardiovascular: nl pulses Gastrointestinal: soft, other (Status post surgery, midline abdominal incision, CAPRICE) Extremities: normal pulses Neurological: nl mental status Results Results 24hrs Laboratory Tests Test 05/29/18 10:23 White Blood Count 7.0 Red Blood Count 4.45 L Hemoglobin 12.9 L Hematocrit 38.7 L Mean Corpuscular Volume 87.0 Mean Corpuscular Hemoglobin 29.0 Mean Corpuscular Hemoglobin Concent 33.3 Red Cell Distribution Width 12.0 Platelet Count 227 Mean Platelet Volume 10.8 H Immature Granulocytes % 0.400 Neutrophils % 71.2 Lymphocytes % 16.8 Monocytes % 8.7 Eosinophils % 2.8 Basophils % 0.1 Nucleated Red Blood Cells % 0.0 Immature Granulocytes # 0.030 Neutrophils # 5.0 Lymphocytes # 1.2 Monocytes # 0.6 Eosinophils # 0.2 Basophils # 0.0 Nucleated Red Blood Cells # 0.0 Prothrombin Time 13.1 Prothrombin Time Ratio 1.0 INR International Normalized Ratio 0.98 Activated Partial Thromboplast Time 31.8 Sodium Level 139 Potassium Level 3.8 Chloride Level 102 Carbon Dioxide Level 29 Anion Gap 8 Blood Urea Nitrogen 5 L Creatinine 0.74 Est Glomerular Filtrat Rate mL/min > 60 Glucose Level 104 Calcium Level 9.0 Medications Medication Current Medications Hydromorphone HCl (Dilaudid LONE LEAD LINEMAN) 0.2 MG/HR CONTINUOUS R... Q4PCA IV Last administered on 05/29/18at 09:52; Admin Dose 6 MG; Start 05/27/18 at 13:30 Pantoprazole (Protonix Iv) 40 mg DAILY@06 IV Last administered on 05/28/18at 05:06; Admin Dose 40 MG; Start 05/28/18 at 06:00 Potassium Chloride/Dextrose/ Sod Cl 1,000 ml @ 150 mls/hr Q6H40M IV Last administered on 05/29/18at 09:50; Admin Dose 150 MLS/HR; Start 05/27/18 at 14:43 Ketorolac Tromethamine (Toradol) 30 mg Q6H IV Last administered on 05/29/18at 09:54; Admin Dose 30 MG; Start 05/27/18 at 16:15; Stop 05/30/18 at 16:14 Ondansetron HCl (Zofran Inj) 4 mg Q4H PRN IV NAUSEA AND/OR VOMITING Last administered on 05/29/18at 12:43; Admin Dose 4 MG; Start 05/27/18 at 16:30 VEE COOK May 29, 2018 14:05
[2018-05-29 15:00] VITALS: BP 134/64; PULSE 74; RESP 18
--- NOTE | 2018-05-29 15:55 | PN ---
DATE: 05/29/2018 Postop day #2 status post laparotomy, subtotal gastrectomy, Kiesha-en-Y gastrojejunostomy and jejunojej unostomy for cancer of the posterior wall of the stomach. SUBJECTIVE: No specific complaint. OBJECTIVE: GENERAL: Fully alert, awake, oriented, in no acute distress. VITAL SIGNS: Temperature 98.7, heart rate 64, respiration 18, blood pressure 116/56, saturation 98% room air. HEART: Regular. LUNGS: Clear. ABDOMEN: Not distended, soft. Bowel sounds are hypoactive. GENITOURINARY: Brennan catheter is in place. SKIN: Davis-Schafer drain through the right abdominal wall is in place draining serosanguineous flui d. EXTREMITIES: Lower extremity: No pitting edema, no calf tenderness. LABORATORY DATA: Today, WBC 7000 with 31% differential which is normal, hemoglobin 12.9, hematocrit 38.7. Chemistry: Sodium, potassium, BUN and creatinine within normal limits. INPUT AND OUTPUT: Urine output was 4900 in past 24 hours, Davis-Schafer drain 155 mL and NG tube whi is on intermittent suction has drained about 120 mL of reddish semi-bloody fluid since yesterday i n the past 24 hours. ASSESSMENT AND PLAN: This is a 27-year-old gentleman with adenocarcinoma of the stomach, lap subtota l gastrectomy on Sunday which was 2 days ago. The patient is currently stable, but up to this time h as not passed any gas or bowel movement so far. There is a Brnenan catheter. There is an NG tube. Th ere is a Davis-Schafer drain. The patient barely got out of bed, sitting in the chair. The patient is using incentive spirometry, also has SHELL MOLDING ROLLER BLAST OPERATOR and also getting Toradol and morphine for control of the pain. PLAN: Get the patient out of bed and walk around either today or if he does not cooperate and cannot do it definitely by tomorrow. We will discontinue the Brennan catheter tomorrow. The patient is stab le. We will continue current care. Dictated By: VIKKI YORK MD PS/NTS Conf#: [id number] DID#: [id number] CC: JAVIER ALMONTE MD; TORRIE MORENO MD;*End*
[2018-05-29 19:30] VITALS: BP 134/63; PULSE 72; RESP 18
[2018-05-29] MEDS: FAMOTIDINE 20 MG INJ IV SCH (20:11)
[2018-05-30 02:15] VITALS: BP 129/60; PULSE 65; RESP 18
[2018-05-30] MEDS: KETOROLAC 30 MG INJ IV SCH ×2 (05:06→10:09)
[2018-05-30] MEDS: HYDROmorphONE 0.2 MG/ML PCA IV SCH ×4 (05:32→23:21)
[2018-05-30] MEDS: D5W-0.45 NACL + KCL 20 MEQ 1,000 ML IV SCH ×4 (07:22→23:11)
[2018-05-30 08:07] VITALS: BP 127/72; PULSE 75; RESP 18
[2018-05-30] MEDS: FAMOTIDINE 20 MG INJ IV SCH ×2 (09:10→21:04)
--- NOTE | 2018-05-30 14:25 | PN ---
Date/Time of Note Date/Time of Note DATE: 05/30/18 TIME: 14:15 Assessment/Plan VTE Prophylaxis Risk score (from Ns)>0 risk: 5 SCD applied (from Ns): Yes Pharmacological prophylaxis: NA/contraindicated Pharm contraindication: surgical contra Lines/Catheters IV Catheter Type (from Nrsg): Peripheral IV Urinary Cath still in place: No Assessment/Plan Hospital Course Patient remains hemodynamically stable, afebrile, pain is adequately controlled on CHEESEMAKING LABORER Dilaudid, NG tube to low intermittent wall suction, small in amount of serosanguineous secretions. Assessment/Plan -Adenocarcinoma of the stomach, status post exploratory laparotomy and subtotal gastrectomy by Dr. Julian on 05/27/2018. Continue CHEESEMAKING LABORER Dilaudid as needed for pain and Zofran as needed for nausea. Continue IV fluids. NG tube to low intermittent suction. -Morbid obesity with BMI of 43.7. Further recommendations based on clinical course. Plan of care discussed with Dr. Carvajal. Result Diagram: 05/30/18 0805 05/30/18 0805 Results 24hrs Laboratory Tests Test 05/30/18 08:05 05/30/18 09:39 White Blood Count 6.6 Red Blood Count 4.54 L Hemoglobin 12.9 L Hematocrit 39.5 L Mean Corpuscular Volume 87.0 Mean Corpuscular Hemoglobin 28.4 L Mean Corpuscular Hemoglobin Concent 32.7 Red Cell Distribution Width 11.9 Platelet Count 245 Mean Platelet Volume 10.8 H Immature Granulocytes % 0.300 Neutrophils % 72.3 Lymphocytes % 16.4 Monocytes % 8.1 Eosinophils % 2.6 Basophils % 0.3 Nucleated Red Blood Cells % 0.0 Immature Granulocytes # 0.020 Neutrophils # 4.8 Lymphocytes # 1.1 Monocytes # 0.5 Eosinophils # 0.2 Basophils # 0.0 Nucleated Red Blood Cells # 0.0 Sodium Level 139 Potassium Level 3.8 Chloride Level 101 Carbon Dioxide Level 26 Anion Gap 12 Blood Urea Nitrogen 7 Creatinine 0.74 Est Glomerular Filtrat Rate mL/min > 60 Glucose Level 102 Calcium Level 9.2 Prothrombin Time 13.1 Prothrombin Time Ratio 1.0 INR International Normalized Ratio 0.98 Activated Partial Thromboplast Time 32.4 Exam/Review of Systems Exam Vitals Vital Signs Date Temp Pulse Resp B/P (MAP) Pulse Ox O2 O2 Flow FiO2 Time Delivery Rate 05/30/18 98.2 75 18 127/72 99 Room Air 08:07 (90) 05/30/18 2.0 08:00 Intake and Output 05/29/18 05/29/18 05/30/18 1515:00 23:00 07:00 IntakeIntake Total 1000 ml 2140 ml 600 ml OutputOutput Total 1700 ml 1555 ml 975 ml BalanceBalance -700 ml 585 ml -375 ml Exam Constitutional: alert, oriented Respiratory: clear to auscultation Cardiovascular: nl pulses Gastrointestinal: soft, other (Status post surgery, midline abdominal incision, CAPRICE) Extremities: normal pulses Neurological: nl mental status Results Results 24hrs Laboratory Tests Test 05/30/18 08:05 05/30/18 09:39 White Blood Count 6.6 Red Blood Count 4.54 L Hemoglobin 12.9 L Hematocrit 39.5 L Mean Corpuscular Volume 87.0 Mean Corpuscular Hemoglobin 28.4 L Mean Corpuscular Hemoglobin Concent 32.7 Red Cell Distribution Width 11.9 Platelet Count 245 Mean Platelet Volume 10.8 H Immature Granulocytes % 0.300 Neutrophils % 72.3 Lymphocytes % 16.4 Monocytes % 8.1 Eosinophils % 2.6 Basophils % 0.3 Nucleated Red Blood Cells % 0.0 Immature Granulocytes # 0.020 Neutrophils # 4.8 Lymphocytes # 1.1 Monocytes # 0.5 Eosinophils # 0.2 Basophils # 0.0 Nucleated Red Blood Cells # 0.0 Sodium Level 139 Potassium Level 3.8 Chloride Level 101 Carbon Dioxide Level 26 Anion Gap 12 Blood Urea Nitrogen 7 Creatinine 0.74 Est Glomerular Filtrat Rate mL/min > 60 Glucose Level 102 Calcium Level 9.2 Prothrombin Time 13.1 Prothrombin Time Ratio 1.0 INR International Normalized Ratio 0.98 Activated Partial Thromboplast Time 32.4 Medications Medication Current Medications Hydromorphone HCl (Dilaudid CHEESEMAKING LABORER) 0.2 MG/HR CONTINUOUS R... Q4PCA IV Last administered on 05/30/18at 11:21; Admin Dose 6 MG; Start 05/27/18 at 13:30 Potassium Chloride/Dextrose/ Sod Cl 1,000 ml @ 120 mls/hr Q8H20M IV Last administered on 05/30/18at 07:22; Admin Dose 120 MLS/HR; Start 05/27/18 at 14:43 Ketorolac Tromethamine (Toradol) 30 mg Q6H IV Last administered on 05/30/18at 10:09; Admin Dose 30 MG; Start 05/27/18 at 16:15; Stop 05/30/18 at 16:14 Ondansetron HCl (Zofran Inj) 4 mg Q4H PRN IV NAUSEA AND/OR VOMITING Last administered on 05/29/18at 12:43; Admin Dose 4 MG; Start 05/27/18 at 16:30 Famotidine (Pepcid Iv) 20 mg Q12 IV Last administered on 05/30/18at 09:10; Admin Dose 20 MG; Start 05/29/18 at 21:00 VEE COOK May 30, 2018 14:25
[2018-05-30] MEDS: CEPASTAT LOZENGE MT PRN ×2 (15:29→17:31)
[2018-05-30] MEDS: ACETAMINOPHEN 1000MG/100ML IV 100 ML IVPB SCH ×2 (15:29→21:04)
[2018-05-30 15:36] VITALS: BP 131/61; PULSE 68; RESP 19
--- NOTE | 2018-05-30 16:33 | PN ---
DATE: 05/30/2018 Postop day #3 status post laparotomy, subtotal gastrectomy for cancer of the stomach. SUBJECTIVE: No specific complaint except that since morning that the Brennan catheter was discontinued , the patient has not been able to urinate. OBJECTIVE: GENERAL: Awake, alert, oriented and sitting in a chair. VITAL SIGNS: Temperature maximum 98.3, heart rate 68, respirations 19, blood pressure 131/61, satura tion 99% on room air. HEART: Regular. LUNGS: Clear. ABDOMEN: Soft. Dressing is intact. LABORATORY DATA: WBC 6600 with 72% segmented, hemoglobin 12.9. Chemistry: Sodium, potassium, BUN, creatinine within normal limits. INPUT AND OUTPUT: I requested nurses to do bladder scan and it was done and it was a lot more than 3 50 mL so straight catheterization was performed and 500 mL of urine was drained. Therefore, we are g oing to do it every 6 hours. NG tube has drained 55 mL in past 24 hours and Davis-Schafer has draine d 75 mL serosanguineous fluid. No flatus, no bowel movement. PLAN: Continue current care. Dictated By: VIKKI YORK MD PS/NTS Conf#: [id number] DID#: [id number] CC: JAVIER ALMONTE MD; TORRIE MORENO MD;*EndCC*
[2018-05-30 20:11] VITALS: BP 135/63; PULSE 57; RESP 20
[2018-05-31] MEDS: ONDANSETRON 4 MG INJ IV PRN ×2 (00:55→10:28)
[2018-05-31] MEDS: CEPASTAT LOZENGE MT PRN (01:04)
[2018-05-31 02:42] VITALS: BP 134/67; PULSE 66; RESP 16
[2018-05-31] MEDS: ACETAMINOPHEN 1000MG/100ML IV 100 ML IVPB SCH ×2 (03:38→09:05)
[2018-05-31] MEDS: HYDROmorphONE 0.2 MG/ML PCA IV SCH ×3 (04:50→17:31)
[2018-05-31] MEDS: D5W-0.45 NACL + KCL 20 MEQ 1,000 ML IV SCH ×3 (06:52→19:07)
[2018-05-31 08:05] VITALS: BP 139/86; PULSE 60; RESP 18
[2018-05-31] MEDS: FAMOTIDINE 20 MG INJ IV SCH ×2 (08:59→20:51)
[2018-05-31 14:00] VITALS: BP 128/75; PULSE 87; RESP 18
--- NOTE | 2018-05-31 15:58 | PN ---
DATE: 05/31/2018 Postop day #4 status post laparotomy, subtotal gastrectomy. SUBJECTIVE: Requesting to be admitted to have some ice chips. Apparently, last night, the patient w as complaining of too much sore throat due to the NG tube and the nurse called Dr. Julian and he agree d to remove the NG tube. OBJECTIVE: GENERAL: Awake, alert, oriented x3, sitting on the bed. VITAL SIGNS: Temperature 98.1, heart rate 67, respirations 16, blood pressure 154/67, saturation 99% on room air. LABORATORY STUDIES: WBC 6100 with 62% segmented, hemoglobin 13.2, hematocrit 39.2. Stable chemistry . Sodium, potassium, BUN and creatinine stable. Pathology for the gastrectomy specimen was marked a nd had shown that there is poorly differentiated adenocarcinoma, diffuse type and 0 lymph node out of 13 lymph node is positive that is only negative. Margins reviewed. PHYSICAL EXAMINATION: HEART: Regular. LUNGS: Clear. ABDOMEN: Soft. Dressing intact. The patient was not able to urinate yesterday, today has been able to urinate. PLAN: We may start sparingly on ice chips just to keep the lips and mouth wet. Encouraged walking a round on the floor. We will continue current care and we will get a Gastrografin barium swallow e on Sunday and then we will start on feeding the patient. Dictated By: VIKKI DE LA TORRE/NTS Conf#: [id number] DID#: [id number]
--- NOTE | 2018-05-31 19:31 | PN ---
Date/Time of Note Date/Time of Note DATE: 05/31/18 TIME: 19:28 Assessment/Plan VTE Prophylaxis Risk score (from Ns)>0 risk: 7 SCD applied (from Ns): Yes Pharmacological prophylaxis: NA/contraindicated Pharm contraindication: surgical contra Lines/Catheters IV Catheter Type (from Nrsg): Peripheral IV Urinary Cath still in place: No Assessment/Plan Hospital Course Pain is adequately controlled with RECEIVING MANAGER Dilaudid, NG tube DC'd patient allowed to start ice chips, Brennan was DC'd yesterday however patient has some urinary retention continue monitor postvoid residual in and out catheter if needed. No flatus. Patient is encouraged to ambulate. Assessment/Plan -Adenocarcinoma of the stomach, status post exploratory laparotomy and subtotal gastrectomy by Dr. Julian on 05/27/2018. Continue RECEIVING MANAGER Dilaudid as needed for pain and Zofran as needed for nausea. Continue IV fluids. NG tube to low intermittent suction. -Morbid obesity with BMI of 43.7. Further recommendations based on clinical course. Plan of care discussed with Dr. Carvajal. Result Diagram: 05/31/18 1001 05/31/18 1001 Results 24hrs Laboratory Tests Test 05/31/18 10:01 White Blood Count 6.1 Red Blood Count 4.58 L Hemoglobin 13.2 L Hematocrit 39.2 L Mean Corpuscular Volume 85.6 Mean Corpuscular Hemoglobin 28.8 L Mean Corpuscular Hemoglobin Concent 33.7 Red Cell Distribution Width 12.0 Platelet Count 292 Mean Platelet Volume 10.6 H Immature Granulocytes % 0.300 Neutrophils % 62.2 Lymphocytes % 23.7 Monocytes % 10.6 Eosinophils % 2.9 Basophils % 0.3 Nucleated Red Blood Cells % 0.0 Immature Granulocytes # 0.020 Neutrophils # 3.8 Lymphocytes # 1.5 Monocytes # 0.7 Eosinophils # 0.2 Basophils # 0.0 Nucleated Red Blood Cells # 0.0 Prothrombin Time 13.3 Prothrombin Time Ratio 1.0 INR International Normalized Ratio 1.00 Activated Partial Thromboplast Time 33.1 Sodium Level 138 Potassium Level 3.8 Chloride Level 101 Carbon Dioxide Level 28 Anion Gap 9 Blood Urea Nitrogen 8 Creatinine 0.66 Est Glomerular Filtrat Rate mL/min > 60 Glucose Level 108 Calcium Level 9.5 Exam/Review of Systems Exam Vitals Vital Signs Date Temp Pulse Resp B/P (MAP) Pulse Ox O2 O2 Flow FiO2 Time Delivery Rate 05/31/18 18 17:31 05/31/18 97.6 87 128/75 97 Room Air 14:00 (92) 05/30/18 2.0 20:00 Intake and Output 05/30/18 05/30/18 05/31/18 1515:00 23:00 07:00 IntakeIntake Total 240 ml 1430 ml 1360 ml OutputOutput Total 40 ml 580 ml 1445 ml BalanceBalance 200 ml 850 ml -85 ml Exam Constitutional: alert, oriented Respiratory: clear to auscultation Cardiovascular: nl pulses Gastrointestinal: soft, other (Status post surgery, midline abdominal incision, CAPRICE) Extremities: normal pulses Neurological: nl mental status Results Results 24hrs Laboratory Tests Test 05/31/18 10:01 White Blood Count 6.1 Red Blood Count 4.58 L Hemoglobin 13.2 L Hematocrit 39.2 L Mean Corpuscular Volume 85.6 Mean Corpuscular Hemoglobin 28.8 L Mean Corpuscular Hemoglobin Concent 33.7 Red Cell Distribution Width 12.0 Platelet Count 292 Mean Platelet Volume 10.6 H Immature Granulocytes % 0.300 Neutrophils % 62.2 Lymphocytes % 23.7 Monocytes % 10.6 Eosinophils % 2.9 Basophils % 0.3 Nucleated Red Blood Cells % 0.0 Immature Granulocytes # 0.020 Neutrophils # 3.8 Lymphocytes # 1.5 Monocytes # 0.7 Eosinophils # 0.2 Basophils # 0.0 Nucleated Red Blood Cells # 0.0 Prothrombin Time 13.3 Prothrombin Time Ratio 1.0 INR International Normalized Ratio 1.00 Activated Partial Thromboplast Time 33.1 Sodium Level 138 Potassium Level 3.8 Chloride Level 101 Carbon Dioxide Level 28 Anion Gap 9 Blood Urea Nitrogen 8 Creatinine 0.66 Est Glomerular Filtrat Rate mL/min > 60 Glucose Level 108 Calcium Level 9.5 Medications Medication Current Medications Hydromorphone HCl (Dilaudid RECEIVING MANAGER) 0.2 MG/HR CONTINUOUS R... Q4PCA IV Last administered on 05/31/18at 17:31; Admin Dose 6 MG; Start 05/27/18 at 13:30 Potassium Chloride/Dextrose/ Sod Cl 1,000 ml @ 120 mls/hr Q8H20M IV Last administered on 05/31/18at 19:07; Admin Dose 120 MLS/HR; Start 05/27/18 at 14:43 Ondansetron HCl (Zofran Inj) 4 mg Q4H PRN IV NAUSEA AND/OR VOMITING Last administered on 05/31/18at 10:28; Admin Dose 4 MG; Start 05/27/18 at 16:30 Famotidine (Pepcid Iv) 20 mg Q12 IV Last administered on 05/31/18at 08:59; Admin Dose 20 MG; Start 05/29/18 at 21:00 Phenol (Cepastat Lozenge) 1 lozenge Q1H PRN MT SORE THROAT Last administered on 05/31/18at 01:04; Admin Dose 1 LOZENGE; Start 05/30/18 at 15:00 VEE COOK May 31, 2018 19:31
[2018-05-31 20:30] VITALS: BP 134/68; PULSE 65; RESP 19
[2018-06-01] MEDS: HYDROmorphONE 0.2 MG/ML PCA IV SCH ×3 (01:19→19:12)
[2018-06-01 02:30] VITALS: BP 135/77; PULSE 95; RESP 18
[2018-06-01] MEDS: D5W-0.45 NACL + KCL 20 MEQ 1,000 ML IV SCH ×4 (04:19→22:06)
[2018-06-01 08:00] VITALS: BP 121/68; PULSE 71; RESP 18
[2018-06-01] MEDS: FAMOTIDINE 20 MG INJ IV SCH ×2 (09:46→20:59)
--- NOTE | 2018-06-01 12:21 | PN ---
DATE: 06/01/2018 Postop day #5 status post laparotomy, subtotal gastrectomy with cancer of the stomach. SUBJECTIVE: No new complaints, feels better. Negative BM, negative flatus. No chills, no fever. OBJECTIVE: GENERAL: Alert, awake, oriented. VITAL SIGNS: Temperature maximum 98.7, heart rate 71, 18 respirations, blood pressure 121/68, satura tion 95% room air. LABORATORY DATA: No lab today. HEART: Regular. LUNGS: Clear. ABDOMEN: Soft. Dressing is intact. EXTREMITIES: Legs no calf tenderness. ASSESSMENT: A 27-year-old patient status post subtotal gastrectomy, postop day #5, is stable, is doi ng fine. The pain is under control. We are going to discontinue the continuous dose of the INGOT CASTER morp claudette and encouraged the patient to ambulate more. Hopefully, by tomorrow, he is going to pass gas an d if that happens or bowel movement, we are going to get the Gastrografin upper GI on Sunday. Dictated By: VIKKI DE LA TORRE/NTS Conf#: [id number] DID#: [id number]
--- NOTE | 2018-06-01 16:34 | PN ---
Date/Time of Note Date/Time of Note DATE: 06/01/18 TIME: 16:34 Assessment/Plan VTE Prophylaxis Risk score (from Nsg)>0 risk: 7 SCD applied (from Nsg): Yes Lines/Catheters IV Catheter Type (from Nrsg): Peripheral IV Urinary Cath still in place: No Assessment/Plan Assessment/Plan -Adenocarcinoma of the stomach, status post exploratory laparotomy and subtotal gastrectomy by Dr. Julian on 05/27/2018. Continue SPOOL WINDER Dilaudid as needed for pain and Zofran as needed for nausea. Continue IV fluids. NG tube to low intermittent suction. -Morbid obesity with BMI of 43.7. Further recommendations based on clinical course. Plan of care discussed with Dr. Carvajal. Result Diagram: 05/31/18 1001 05/31/18 1001 Exam/Review of Systems Exam Vitals Vital Signs Date Temp Pulse Resp B/P (MAP) Pulse Ox O2 O2 Flow FiO2 Time Delivery Rate 06/01/18 17 13:00 06/01/18 98.7 71 121/68 95 08:00 (85) 05/31/18 Room Air 14:00 05/30/18 2.0 20:00 Intake and Output 05/31/18 05/31/18 06/01/18 1515:00 23:00 07:00 IntakeIntake Total 740 ml 1000 ml 1100 ml OutputOutput Total 30 ml 1630 ml 40 ml BalanceBalance 710 ml -630 ml 1060 ml Medications Medication Current Medications Hydromorphone HCl (Dilaudid SPOOL WINDER) MG CONTINUOUS D... Q4PCA IV Last administered on 06/01/18at 11:41; Admin Dose 6 MG; Start 05/27/18 at 13:30 Potassium Chloride/Dextrose/ Sod Cl 1,000 ml @ 120 mls/hr Q8H20M IV Last administered on 06/01/18at 04:19; Admin Dose 120 MLS/HR; Start 05/27/18 at 14:43 Ondansetron HCl (Zofran Inj) 4 mg Q4H PRN IV NAUSEA AND/OR VOMITING Last admin istered on 05/31/18at 10:28; Admin Dose 4 MG; Start 05/27/18 at 16:30 Famotidine (Pepcid Iv) 20 mg Q12 IV Last administered on 3/16/19at 09:46; Admin Dose 20 MG; Start 05/29/18 at 21:00 Phenol (Cepastat Lozenge) 1 lozenge Q1H PRN MT SORE THROAT Last administered on 05/31/18at 01:04; Admin Dose 1 LOZENGE; Start 05/30/18 at 15:00 DAREK SILVA Jun 01, 2018 16:34
[2018-06-01 19:10] VITALS: BP 125/58; PULSE 70; RESP 20
[2018-06-02] MEDS: D5W-0.45 NACL + KCL 20 MEQ 1,000 ML IV SCH ×4 (00:32→21:03)
[2018-06-02 02:00] VITALS: BP 130/62; PULSE 63; RESP 20
[2018-06-02 08:00] VITALS: BP 130/63; PULSE 80; RESP 20
[2018-06-02] MEDS: FAMOTIDINE 20 MG INJ IV SCH ×2 (08:42→20:54)
[2018-06-02] MEDS: HYDROmorphONE 0.2 MG/ML PCA IV SCH (10:28)
[2018-06-02 14:11] VITALS: BP 130/62; PULSE 68; RESP 18
--- NOTE | 2018-06-02 14:27 | PN ---
DATE: 06/02/2018 Postop day #6 status post laparotomy, subtotal gastrectomy for cancer. SUBJECTIVE: Feels better, has passed some gas today. No nausea, no vomiting, no bowel movement. OBJECTIVE: GENERAL: Awake, alert, oriented, sitting in the chair at the bedside. VITAL SIGNS: Temperature maximum 98.7, heart rate 80, respirations 22, blood pressure 130/63, satura tion 97% on room air. HEART: Regular. LUNGS: Clear. ABDOMEN: Soft. Dressing is intact. Wound appears okay. Bowel sound is present. EXTREMITIES: No calf tenderness. No pitting edema. LABORATORY DATA: WBC 5500 with 64% segmented, hemoglobin 12.8, hematocrit 37.7. Chemistry: Sodium, potassium, BUN, creatinine within normal limits. ASSESSMENT AND PLAN: A 27-year-old patient postop day #6 status post subtotal gastrectomy is stable, has started passing gas. We are going to give the Gastrografin swallow tomorrow for assessment of t he anastomosis and from there, we will advance diet if everything is okay. Dictated By: VIKKI YORK MD PS/NTS Conf#: [id number] DID#: [id number] CC: TORRIE MORENO MD; JAVIER ALMONTE MD;*EndCC*
--- NOTE | 2018-06-02 14:29 | PN ---
Date/Time of Note Date/Time of Note DATE: 06/02/18 TIME: 14:09 Assessment/Plan VTE Prophylaxis Risk score (from Nsg)>0 risk: 6 SCD applied (from Nsg): Yes Lines/Catheters IV Catheter Type (from Nrsg): Peripheral IV Urinary Cath still in place: No Assessment/Plan Assessment/Plan -Adenocarcinoma of the stomach, status post exploratory laparotomy and subtotal gastrectomy by Dr. Julian on 05/27/2018. Continue MAINTENANCE CARPENTER Dilaudid as needed for pain and Zofran as needed for nausea. Continue IV fluids. NG tube to low intermittent suction. -Morbid obesity with BMI of 43.7. Further recommendations based on clinical course. Plan of care discussed with Dr. Carvajal. Result Diagram: 06/02/18 0425 05/31/18 1001 Results 24hrs Laboratory Tests Test 06/02/18 04:25 White Blood Count 5.5 Red Blood Count 4.42 L Hemoglobin 12.8 L Hematocrit 37.7 L Mean Corpuscular Volume 85.3 Mean Corpuscular Hemoglobin 29.0 Mean Corpuscular Hemoglobin Concent 34.0 Red Cell Distribution Width 12.0 Platelet Count 288 Mean Platelet Volume 10.5 H Immature Granulocytes % 0.200 Neutrophils % 64.2 Lymphocytes % 21.4 Monocytes % 10.4 Eosinophils % 3.3 Basophils % 0.5 Nucleated Red Blood Cells % 0.0 Immature Granulocytes # 0.010 Neutrophils # 3.5 Lymphocytes # 1.2 Monocytes # 0.6 Eosinophils # 0.2 Basophils # 0.0 Nucleated Red Blood Cells # 0.0 Subjective 24 Hr Interval Summary Free Text/Dictation -MAINTENANCE CARPENTER Dilaudid adjustment made by dr Gonzalez -Patient may be started on clear liquid diet tomorrow per surgery. -Doing well today; was able to pass gas. -abdominal dressing was changed by staff -no new issues reported last night Eyes: no complaints ENT: no complaints Respiratory: no complaints Cardiovascular: no complaints Gastrointestinal: pain (controlled with med) Genitourinary: no complaints Musculoskeletal: no complaints Neurologic: no complaints Endocrine: no complaints Lymphatic: no complaints Psychological: nl mood/affect Immunologic: no complaints Exam/Review of Systems Exam Vitals Vital Signs Date Temp Pulse Resp B/P (MAP) Pulse Ox O2 O2 Flow FiO2 Time Delivery Rate 06/02/18 18 13:13 06/02/18 98.7 80 130/63 97 Room Air 08:00 (85) 05/30/18 2.0 20:00 Intake and Output 06/01/18 06/01/18 06/02/18 1515:00 23:00 07:00 IntakeIntake Total 1900 ml 1000 ml OutputOutput Total 5 ml 15 ml BalanceBalance 1895 ml 985 ml Results Results 24hrs Laboratory Tests Test 06/02/18 04:25 White Blood Count 5.5 Red Blood Count 4.42 L Hemoglobin 12.8 L Hematocrit 37.7 L Mean Corpuscular Volume 85.3 Mean Corpuscular Hemoglobin 29.0 Mean Corpuscular Hemoglobin Concent 34.0 Red Cell Distribution Width 12.0 Platelet Count 288 Mean Platelet Volume 10.5 H Immature Granulocytes % 0.200 Neutrophils % 64.2 Lymphocytes % 21.4 Monocytes % 10.4 Eosinophils % 3.3 Basophils % 0.5 Nucleated Red Blood Cells % 0.0 Immature Granulocytes # 0.010 Neutrophils # 3.5 Lymphocytes # 1.2 Monocytes # 0.6 Eosinophils # 0.2 Basophils # 0.0 Nucleated Red Blood Cells # 0.0 Medications Medication Current Medications Hydromorphone HCl (Dilaudid MAINTENANCE CARPENTER) MG CONTINUOUS D... Q4PCA IV Last administered on 06/02/18 10:28; Admin Dose 6 MG; Start 05/27/18 at 13:30 Potassium Chloride/Dextrose/ Sod Cl 1,000 ml @ 120 mls/hr Q8H20M IV Last administered on 06/02/18at 05:58; Admin Dose 120 MLS/HR; Start 05/27/18 at 14:43 Ondansetron HCl (Zofran Inj) 4 mg Q4H PRN IV NAUSEA AND/OR VOMITING Last administered on 05/31/18 10:28; Admin Dose 4 MG; Start 05/27/18 at 16:30 Famotidine (Pepcid Iv) 20 mg Q12 IV Last administered on 06/02/18 08:42; Admin Dose 20 MG; Start 05/29/18 at 21:00 Phenol (Cepastat Lozenge) 1 lozenge Q1H PRN MT SORE THROAT Last administered on 05/31/18 01:04; Admin Dose 1 LOZENGE; Start 05/30/18 at 15:00 DAREK SILVA Jun 02, 2018 14:27
[2018-06-02 19:30] VITALS: BP 134/78; PULSE 65; RESP 16
[2018-06-02] MEDS: CEPASTAT LOZENGE MT PRN (21:02)
[2018-06-03] MEDS: D5W-0.45 NACL + KCL 20 MEQ 1,000 ML IV SCH ×4 (01:32→20:39)
[2018-06-03 01:55] VITALS: BP 117/62; PULSE 63; RESP 16
[2018-06-03 08:32] VITALS: BP 118/62; PULSE 63
[2018-06-03] MEDS: FAMOTIDINE 20 MG INJ IV SCH ×2 (09:19→20:39)
--- NOTE | 2018-06-03 11:56 | PN ---
Date/Time of Note Date/Time of Note DATE: 06/03/18 TIME: 11:55 Assessment/Plan VTE Prophylaxis Risk score (from Ns)>0 risk: 7 SCD applied (from Ns): Yes Pharmacological prophylaxis: NA/contraindicated Pharm contraindication: surgical contra Lines/Catheters IV Catheter Type (from Nrsg): Peripheral IV Urinary Cath still in place: No Assessment/Plan Hospital Course Pain is adequately controlled patient continues on IV fluids and ice chips, pending Gastrografin follow-through study prior to starting diet, able to void with no problems. Assessment/Plan -Adenocarcinoma of the stomach, status post exploratory laparotomy and subtotal gastrectomy by Dr. Julian on 05/27/2018. Continue CRANE FOLLOWER Dilaudid as needed for pain and Zofran as needed for nausea. Continue IV fluids. -Morbid obesity with BMI of 43.7. Further recommendations based on clinical course. Plan of care discussed with Dr. Carvajal. Result Diagram: 06/02/18 0425 06/02/18 1519 Results 24hrs Laboratory Tests Test 06/02/18 15:19 Sodium Level 137 Potassium Level 4.6 Chloride Level 102 Carbon Dioxide Level 24 Anion Gap 11 Blood Urea Nitrogen 7 Creatinine 0.66 Est Glomerular Filtrat Rate mL/min > 60 Glucose Level 94 Calcium Level 9.6 Exam/Review of Systems Exam Vitals Vital Signs Date Temp Pulse Resp B/P (MAP) Pulse Ox O2 O2 Flow FiO2 Time Delivery Rate 06/03/18 18 09:00 06/03/18 98.3 63 118/62 97 Room Air 08:32 (80) 05/30/18 2.0 20:00 Intake and Output 06/02/18 06/02/18 06/03/18 1515:00 23:00 07:00 IntakeIntake Total 1000 ml 400 ml 960 ml OutputOutput Total 15 ml 10 ml BalanceBalance 1000 ml 385 ml 950 ml Exam Constitutional: alert, oriented Respiratory: clear to auscultation Cardiovascular: nl pulses Gastrointestinal: soft, other (Status post surgery, midline abdominal incision) Extremities: normal pulses Neurological: nl mental status Results Results 24hrs Laboratory Tests Test 06/02/18 15:19 Sodium Level 137 Potassium Level 4.6 Chloride Level 102 Carbon Dioxide Level 24 Anion Gap 11 Blood Urea Nitrogen 7 Creatinine 0.66 Est Glomerular Filtrat Rate mL/min > 60 Glucose Level 94 Calcium Level 9.6 Medications Medication Current Medications Hydromorphone HCl (Dilaudid CRANE FOLLOWER) MG CONTINUOUS D... Q4PCA IV Last administered on 06/02/18 10:28; Admin Dose 6 MG; Start 05/27/18 at 13:30 Potassium Chloride/Dextrose/ Sod Cl 1,000 ml @ 120 mls/hr Q8H20M IV Last administered on 06/03/18 06:34; Admin Dose 120 MLS/HR; Start 05/27/18 at 14:43 Ondansetron HCl (Zofran Inj) 4 mg Q4H PRN IV NAUSEA AND/OR VOMITING Last administered on 05/31/18 10:28; Admin Dose 4 MG; Start 05/27/18 at 16:30 Famotidine (Pepcid Iv) 20 mg Q12 IV Last administered on 06/03/18 09:19; Admin Dose 20 MG; Start 05/29/18 at 21:00 Phenol (Cepastat Lozenge) 1 lozenge Q1H PRN MT SORE THROAT Last administered on 06/02/18 21:02; Admin Dose 1 LOZENGE; Start 05/30/18 at 15:00 VEE COOK Jun 03, 2018 11:56
[2018-06-03] MEDS ORDERED: DIATR MEGLU/DIATRIZOATE SODIUM 120 ML BTL ONE (11:57)
--- NOTE | 2018-06-03 17:42 | PN ---
DATE: 06/03/2018 Postop day #7 status post laparoscopic subtotal gastrectomy for cancer of the stomach. SUBJECTIVE: No complaint. Apparently had a Gastrografin swallow test done today, and following that , patient has had diarrhea. No nausea, no vomiting. No chills, no fever. OBJECTIVE: GENERAL: Awake, alert. VITAL SIGNS: Temperature 98.3, heart rate 63, respirations 18, blood pressure 118/62, saturation 97% room air. HEART: Regular. LUNGS: Clear. ABDOMEN: Soft. Wound clean. LABORATORY DATA: No lab has been done today. IMAGING: Today, patient had contrast study of the esophagus and anastomosis area with Gastrografin. I checked it right now with the radiologist on-call. He stated that he does not see any evidence of leakage. No obstruction. PLAN: Therefore, we are going to start the patient on clear liquids and recheck the patient tomorrow . If everything is okay, we will advance diet as of tomorrow. Dictated By: VIKKI DE LA TORRE/MARTINEZ Conf#: [id number] DID#: [id number]
[2018-06-03 19:30] VITALS: BP 106/57; PULSE 67; RESP 16
[2018-06-03] MEDS: HYDROmorphONE 0.5 MG/0.5 ML SYG IV PRN (20:39)
[2018-06-04] MEDS: D5W-0.45 NACL + KCL 20 MEQ 1,000 ML IV SCH ×2 (00:51→16:38)
[2018-06-04 01:43] VITALS: BP 117/59; PULSE 53; RESP 16
[2018-06-04] MEDS: HYDROmorphONE 0.5 MG/0.5 ML SYG IV PRN ×4 (02:31→20:29)
[2018-06-04 08:12] VITALS: BP 108/56; RESP 18
[2018-06-04 08:16] VITALS: PULSE 55
[2018-06-04] MEDS: FAMOTIDINE 20 MG INJ IV SCH ×2 (08:40→20:29)
--- NOTE | 2018-06-04 14:52 | PN ---
DATE: 06/04/2018 Postop day #8 status post laparotomy, subtotal gastrectomy. SUBJECTIVE: No new complaint. The patient has been having several bowel movements liquidish since w e did Gastrografin swallow yesterday. The report is not yet back in the computer, but I have checked the x-rays with one of the radiologists and he stated that there is no evidence of leak. The patien t has started clear liquids so we are going to advance to full liquid. If he tolerates tomorrow, we will advance to soft diet. PHYSICAL EXAMINATION: GENERAL: Alert, awake, oriented. VITAL SIGNS: Temperature 98.7 maximum, 53 heart rate, respirations 16, blood pressure 117/59, satura tion 96% on room air. Dictated By: VIKKI YORK MD PS/NTS Conf#: [id number] DID#: [id number] CC: TORRIE MORENO MD; JAVIER ALMONTE MD;*EndCC*
[2018-06-04 15:03] VITALS: BP 111/55; PULSE 60
--- NOTE | 2018-06-04 16:51 | PN ---
Date/Time of Note Date/Time of Note DATE: 06/04/18 TIME: 16:47 Assessment/Plan VTE Prophylaxis Risk score (from Ns)>0 risk: 5 SCD applied (from [facility] [place]): Yes Pharmacological prophylaxis: NA/contraindicated Pharm contraindication: surgical contra Lines/Catheters IV Catheter Type (from [facility]): Peripheral IV Urinary Cath still in place: No Assessment/Plan Hospital Course Patient is started on clear liquid diet, pain is adequately controlled, patient's p.o. intake is about 500 cc per shift, continue IV fluids. Assessment/Plan -Adenocarcinoma of the stomach, status post exploratory laparotomy and subtotal gastrectomy by Dr. Julian on 05/27/2018. Advance diet per surgery, IV fluids, pain management. -Morbid obesity with BMI of 43.7. Further recommendations based on clinical course. Plan of care discussed with Dr. Carvajal. Result Diagram: 06/02/18 0425 06/02/18 1519 Exam/Review of Systems Exam Vitals Vital Signs Date Temp Pulse Resp B/P (MAP) Pulse Ox O2 O2 Flow FiO2 Time Delivery Rate 06/04/18 99.5 60 111/55 91 Nasal 15:03 (73) Cannula 06/04/18 18 08:12 Intake and Output 06/03/18 06/03/18 06/04/18 1515:00 23:00 07:00 IntakeIntake Total 1960 ml 1480 ml OutputOutput Total 5 ml 10 ml BalanceBalance 1955 ml 1470 ml Exam Constitutional: alert, oriented Respiratory: clear to auscultation Cardiovascular: nl pulses Gastrointestinal: soft, other (midline abdominal incision) Extremities: normal pulses Neurological: nl mental status Medications Medication Current Medications Potassium Chloride/Dextrose/ Sod Cl 1,000 ml @ 80 mls/hr [id number] IV Last administered on 06/04/18at 16:38; Admin Dose 80 MLS/HR; Start 05/27/18 at 14:43 Ondansetron HCl (Zofran Inj) 4 mg Q4H PRN IV NAUSEA AND/OR VOMITING Last administered on 05/31/18at 10:28; Admin Dose 4 MG; Start 05/27/18 at 16:30 Phenol (Cepastat Lozenge) 1 lozenge Q1H PRN MT SORE THROAT Last administered on 06/02/18at 21:02; Admin Dose 1 LOZENGE; Start 05/30/18 at 15:00 Hydromorphone HCl (Dilaudid) 0.5 mg Q4H PRN IV SEVERE PAIN LEVEL 7-10 Last administered on 06/04/18at 16:35; Admin Dose 0.5 MG; Start 06/03/18 at 17:30 Morphine Sulfate (morphine) 6 mg Q4H PRN PO SEVERE PAIN LEVEL 7-10; Start 06/04/18 at 16:30 Famotidine (Pepcid Iv) 20 mg Q12 IV ; Start 06/04/18 at 21:00 VEE COOK Jun 04, 2018 16:51
[2018-06-04 20:00] VITALS: BP 121/68; PULSE 63; RESP 18
[2018-06-04] MEDS ORDERED: FAMOTIDINE 20 MG TAB PO SCH (21:00)
[2018-06-05] MEDS: HYDROmorphONE 0.5 MG/0.5 ML SYG IV PRN ×4 (00:21→21:23)
[2018-06-05 02:00] VITALS: BP 112/58; PULSE 61; RESP 16
[2018-06-05] MEDS: D5W-0.45 NACL + KCL 20 MEQ 1,000 ML IV SCH ×2 (05:14→18:42)
[2018-06-05 07:36] VITALS: BP 128/76; PULSE 70; RESP 20
[2018-06-05] MEDS: FAMOTIDINE 20 MG INJ IV SCH ×2 (09:53→21:23)
[2018-06-05] MEDS: morphine LIQ (10 MG/5 ML) CUP PO PRN ×2 (10:02→16:10)
[2018-06-05 14:28] VITALS: BP 121/78; PULSE 121; RESP 20
--- NOTE | 2018-06-05 16:48 | PN ---
DATE: 06/05/2018 Postop day #9 status post laparotomy, subtotal gastrectomy for cancer of the stomach, gastrojejunosto my Kiesha-en-Y. SUBJECTIVE: No complaint. Has tolerated full liquid. Has had bowel movement. No nausea, no vomiti ng. OBJECTIVE: GENERAL: Awake, alert, oriented. VITAL SIGNS: Stable. No fever. Saturation 98% on room air. The patient had Gastrografin swallow the other day and the official report is back. There is no evid ence obstruction or leakage. Therefore, we are going to advance the diet today to soft diet and if h e does tolerate by tomorrow morning, then he is going to be discharged tomorrow. Dictated By: VIKKI YORK MD PS/NTS Conf#: [id number] DID#: [id number] CC: JAVIER ALMONTE MD; TORRIE MORENO MD;*EndCC*
[2018-06-05] MEDS: ONDANSETRON 4 MG INJ IV PRN (17:15)
[2018-06-05 17:20] VITALS: BP 121/66; PULSE 59; RESP 16
[2018-06-05 19:55] VITALS: BP 126/67; PULSE 63; RESP 16
[2018-06-06 01:59] VITALS: BP 122/63; PULSE 69; RESP 18
[2018-06-06] MEDS: D5W-0.45 NACL + KCL 20 MEQ 1,000 ML IV SCH (07:38)
[2018-06-06 08:28] VITALS: BP 116/63; PULSE 60; RESP 18
[2018-06-06] MEDS: FAMOTIDINE 20 MG INJ IV SCH (08:52)
--- NOTE | 2018-06-06 11:45 | PDOCDIS ---
Discharge Instructions CONDITION [id number] Patient Condition: [id number] Stable HOME CARE INSTRUCTIONS: [id number] Diet Instructions: [id number] ACTIVITY: [id number] Activity Restrictions: [id number] Slowly Increase Activity Rest between Activity Avoid heavy lifting Do not Drive Do not operate Machinery Do not operate Power Tool [id number] Bathing Restrictions: [id number] Sponge Bath FOLLOW UP/APPOINTMENTS Follow-up Plan FU with PMD X 1 WEEK FU W/ SURGEON RECOMMENDED CALL 911 OR GO TO THE [facility]ARE[facility] IF SYMPTOMS GET WORSE- PATIENT VERBALIZED UNDERSTANDING DISCHARGE INSTRUCTIONS DW DR MORENO/STAFF DAREK SILVA Jun 06, 2018 11:45
[2018-06-06] MEDS ORDERED: OMEP40CA6 PO (11:46)
--- NOTE | 2018-06-06 11:47 | DS ---
Date/Time of Note Date/Time of Note DATE: 06/06/18 TIME: 11:47 Discharge Summary Admission/Discharge Info Admit Date/Time May 27, 2018 at 07:02 Discharge Date/Time Patient Condition: Stable Home Meds Active Scripts Omeprazole* (Omeprazole*) 40 Mg Capsule., 40 MG PO BID, #30 CAP Prov:DAREK SILVA 06/06/18 Follow-up Plan FU with PMD X 1 WEEK FU W/ SURGEON RECOMMENDED CALL 911 OR GO TO THE NEAREST HOS[facility]ITAL IF SYMPTOMS GET WORSE- PATIENT VERBALIZED UNDERSTANDING DISCHARGE INSTRUCTIONS DW DR MORENO/STAFF Primary Care Provider Care Physician No Primary Time spent on discharge: < 30 minutes DAREK SILVA Jun 06, 2018 11:47
--- NOTE | 2018-06-06 11:52 | PN ---
DATE: 06/06/2018 Postop day #10 status post laparotomy, subtotal gastrectomy, gastrojejunostomy, Kiesha-en-Y . SUBJECTIVE: No complaint. The patient has been feeling good and he is tolerating soft diet, has had bowel movement. No nausea and no vomiting. OBJECTIVE: GENERAL: Awake, alert, oriented. VITAL SIGNS: Temperature is normal, heart rate 60 to 69, respiration 18, blood pressure 122/63, satu ration 97% on room air. LABORATORY DATA: Stable. PHYSICAL EXAM: HEART: Regular. LUNGS: Clear. ABDOMEN: Soft. Incision line clean. EXTREMITIES: Legs no calf tenderness. ASSESSMENT AND PLAN: The patient is status post subtotal gastrectomy. He is tolerating diet. Havin g bowel movement. No nausea and no vomiting. Patient can be discharged home today, to be followed b y Dr. Almonte in his office. The patient to call Dr. Almonte' office to make an appointment for followup . The patient was given instructions for activity and food intake. The patient was informed that du e to the subtotal gastrectomy, the capacity of the remaining stomach is very limited. Therefore, he cannot take big meals, but he should take smaller meals and more frequent meals. The patient underst ands. The medical service will see the patient for final instruction in regards to the medical probl em and also we gave prescription for pain. Dictated By: VIKKI YORK MD PS/NTS Conf#: [id number] DID#: [id number] CC: JAVIER ALMONTE MD;*EndCC*
== END 2018-06-06 12:55 | disposition home or self-care (01) | DRG 327 ==
LOC: REC 07:02 → EDSTATUS 14:36 → MS1 15:16
PROVIDERS: ADMIT Surgery Surgical Oncology; ATTEND Surgery Surgical Oncology
PROC: 0D160ZA Bypass Stomach to Jejunum, Open Approach (ICD-10-PCS; 2018-05-27)
PROC: 0DB60ZZ Excision of Stomach, Open Approach (ICD-10-PCS; principal; 2018-05-27 09:00)
DX: C16.9 Malignant neoplasm of stomach, unspecified (principal); Z68.41 Body mass index [BMI] 40.0-44.9, adult; E66.01 Morbid (severe) obesity due to excess calories
CPT/HCPCS: 71045; 71046; 74230; 80048; 80053; 85025; 85610; 85730; 87086; 88307; 88312; 88331; 93005; A4310; C9113; J0131; J0690; J1170; J1200; J1885; J2001; J2175; J2405; J3010; J3480

== ENCOUNTER 2018-06-07 20:13 | Emergency (ER) | payer SELFPAY ==
[~2018-06-07] VITALS: Ht 177.8 cm; Wt 129.0 kg
[~2018-06-07 20:13] MED LIST changes: +OMEP40CA6 PO; -ZOF8 PO
[2018-06-07 20:17] VITALS: BP 137/85; PULSE 79; RESP 18; Ht 177.8 cm; Wt 129.0 kg
== END 2018-06-07 20:34 | disposition left against medical advice (07) ==
LOC: E/R 20:13
DX: Z53.21 Procedure and treatment not carried out due to patient leaving prior to being seen by health care provider (principal)

== ENCOUNTER 2018-11-14 18:35 | Emergency (ER) | payer OTHER ==
[~2018-11-14] VITALS: Wt 120.3 kg
[2018-11-14] MEDS ORDERED: morphine 4 MG/ML VIAL IV STA (21:11)
[2018-11-14 22:38] VITALS: BP 133/65; PULSE 77; RESP 16
== END 2018-11-14 22:39 | disposition home or self-care (01) ==
LOC: E/R 18:35
DX: R10.31 Right lower quadrant pain (principal); Z85.028 Personal history of other malignant neoplasm of stomach
CPT/HCPCS: 36415; 74176; 80053; 81003; 85025; 96374; 99285; J2270